=== PATIENT | female | born 1965 | race Caucasian/White ===

== ENCOUNTER 2017-03-28 11:17 | Inpatient (IN) ==
[2017-03-28] MEDS ORDERED: Albuterol 2.5 MG/3 ML NEBULIZER IH ONE (11:53)
[2017-03-28] MEDS ORDERED: Vancomycin 1,250 MG in D5% in Water 250 ML IVPB ONE (11:53)
[2017-03-28] MEDS ORDERED: Lidocaine -MPF 1% 2 ML VIAL ID ONE (11:53)
[2017-03-28] MEDS ORDERED: Albuterol 2.5 MG/3 ML NEBULIZER ONE (11:58)
[2017-03-28] MEDS ORDERED: Plasma-Lyte A (PH 7.4) 1,000 ML IVC SCH (12:00)
--- NOTE | 2017-03-28 12:10 | Anesthesia Evaluation PreOp ---
Date of Encounter: 03/28/17 Time of Encounter: 12:07 - Past History Planned Operation: Left total hip arthroplasty Cardiac History: HTN, Hyperlipidemia, Cardiac Stent (LAD), Other (stress : Impression: Perfusion imaging was negative for ischemia or infarct. Pharmacologic stress ECG is non diagnostic for ischemia due to baseline non-specific ST and T changes. No appreciable change from baseline ECG. 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: Other (depression) Other Medical History: Diabetes Type II Anesthesia History: No Prior Anesthetic Complications, Past Anesthesia ( appendectomy, csection, partial hysterectomy, cholecystectomy, atempted left subclavian aa angioplasty via left brachial aa cutdown) Alcohol Use: none Drug use: none Medications and Allergies Losartan Potassium [Cozaar] 50 mg PO DAILY 03/23/16 [History] Sertraline [Zoloft] 50 mg PO DAILY 03/23/16 [History] Simvastatin [Zocor] 40 mg PO HS 03/23/16 [History] Metformin HCl [Glucophage] 1,000 mg PO HS 04/09/16 [History] Aspirin [Lo-Dose Aspirin EC] 81 mg PO DAILY 03/28/17 [History] HYDROcodone/Acet 7.5/325 mg [[place] 7.5-325 mg] 1 tab PO QID PRN 03/28/17 [ History] Omeprazole [PriLOSEC] 20 mg PO DAILY 03/28/17 [History] 3 Allergy/AdvReac Type Severity Reaction Status Date / Time cefazolin [From Ancef] Allergy Unknown swelling Verified 03/28/17 12:20 shortness of breath meperidine [From Demerol] Allergy swelling Verified 03/28/17 12:20 shortness of breath Penicillins [PCN] Allergy SWELLING Verified 03/28/17 12:27 SHORTNESS OF BREATH promethazine [From Phenergan] Allergy swelling Verified 03/28/17 12:20 shortness of breath - Meds/Allergy Pre-op Review Medications Reviewed: Yes Allergies Reviewed: Yes Beta Blockers on Current Med List: No Anesthesia Results - Labs Laboratory Tests 11/16/16 02/25/17 02/25/17 10:38 12:10 12:10 WBC 13.5 H Hgb 14.2 Hct 42.4 Plt Count 482 H PT 10.9 INR 1.0 APTT 29.3 Sodium Potassium Chloride Carbon Dioxide BUN Creatinine Glucose 119 H Est Mean Plasma Glucose Hemoglobin A1c 02/25/17 02/25/17 02/25/17 12:10 12:10 12:10 WBC Hgb Hct Plt Count PT INR APTT Sodium 136 Potassium 4.1 Chloride 106 Carbon Dioxide 20 BUN 12 Creatinine 0.82 Glucose Est Mean Plasma Glucose 123 Hemoglobin A1c 5.9 H - Imaging EKG: report reviewed (NSR) Anesthesia Exam Vital Signs/O2 Sat, Most Current Temp Pulse Resp BP Pulse Ox 98.0 F 81 18 130/77 94 03/28/17 11:38 03/28/17 11:38 03/28/17 12:07 03/28/17 12:07 03/28/17 12:07 Blood glucose: 114 Height: 1.55m Weight: 80kg NPO (# of Hours): >8 Pain Scale: 0 Pain Scale Used: Numeric (1 - 10) - HEENT Pupil (Motor): Pupils equal, EOMI Mallampati: III Teeth: Poor dentition Oral Opening: Greater than 3 - GREEN CHAINER LOC: Oriented GREEN CHAINER Motor: Normal RUE, Normal LUE, Normal RLE, Normal LLE, Normal Face GREEN CHAINER Sensory: Normal: RUE, LUE, RLE, LLE, Face - Cardiac Rhythm: Regular - Pulmonary Breath Sounds: bilateral Clear Respiratory Effort: Symmetrical Anesthesia Assess/Plan ASA Score: 3 (CAD s/p stent to LAD, HTN, DM, depression) Modified [place] Scale for Level of Consciousness: Cooperative, oriented, and tranquil Anesthetic Plan: General (r/b/a discussed, questions answered, consent obtained) Monitoring Plan: Standard Monitors Recovery Plan: PACU
[2017-03-28] MEDS ORDERED: Naloxone 0.4 MG/ML INJ IVP PRN ×2 (12:32→16:00)
[2017-03-28] MEDS ORDERED: *HR* FentaNYL (PF) 100 MCG/2 ML VIAL IVP PRN (12:32)
[2017-03-28] MEDS ORDERED: Ondansetron 4 MG/2 ML VIAL IVP ONE (12:32)
--- NOTE | 2017-03-28 12:33 | History & Physical Report ---
Date of Encounter: 03/28/17 Time of Encounter: 12:33 24 Hour HP Update - Instructions Instructions: If the History and Physical is less than 30 days old and was completed prior to A.M. admission and or procedure and has NOT been updated on calendar day of procedure please complete this update prior to performing procedure. - Update Patient reports changes in Medical Condition: No Changes in examination, assessment, or condition: No Changes in Medication: No Preop tests/diagnostics Reviewed: Yes Surgery Remains Indicated: Yes Consent for Planned Operative Procedure(s) Verified: Yes - Pre-Operative Checklist Preoperative Checklist Indicated: No Prophylactic Antibiotic Ordered: Yes Is VTE Prophylaxis Indicated?: Yes
[2017-03-28] MEDS ORDERED: Ringers Solution, Lactated 1,000 ML IVC SCH (12:45)
[2017-03-28] MEDS ORDERED: Ethanol\\Acetic Acid\\Na Ace\\Ben 1,000 ML IRRIG.SOLN IR ONE (13:12)
[2017-03-28] MEDS ORDERED: *HR* Midazolam HCl 2 MG/2 ML VIAL ONE (13:16)
[2017-03-28] MEDS ORDERED: *HR* Propofol 200 MG/20 ML VIAL IVP ONE (13:16)
[2017-03-28] MEDS ORDERED: *HR* HYDROmorphone 2 MG/ML SYRINGE ONE (13:17)
[2017-03-28] MEDS ORDERED: Lidocaine -MPF 2% 2 ML VIAL ONE (13:18)
[2017-03-28] MEDS ORDERED: Lidocaine -MPF 4% 5 ML AMPUL ONE (13:19)
[2017-03-28] MEDS ORDERED: *HR* Succinylcholine 200 MG/10 ML VIAL IVP ONE (13:20)
[2017-03-28] MEDS ORDERED: Ketamine *HR* 500 MG/10 ML MDV ONE (13:38)
--- NOTE | 2017-03-28 13:40 | Discharge Summary ---
Date of Encounter: 03/29/17 Time of Encounter: 06:39 - Discharge Diagnosis (1) DDH (developmental dysplasia of the hip) Priority: Primary Status: Chronic (2) Status post total hip replacement, left Priority: Primary Status: Acute (3) Coronary artery disease Priority: Secondary Status: Chronic Qualifiers: Coronary Disease-Associated Artery/Lesion type: unspecified vessel or lesion type [place] vs. transplanted heart: unspecified whether tribe or transplanted heart Associated angina: with unspecified angina Qualified Code (s): I25.119 - Atherosclerotic heart disease of tribe coronary artery with unspecified angina pectoris (4) Hypertension Priority: Secondary Status: Chronic Qualifiers: Hypertension type: unspecified secondary hypertension Qualified Code(s): I15.9 - Secondary hypertension, unspecified; I15 - Secondary hypertension (5) Hyperlipidemia associated with type 2 diabetes mellitus Priority: Secondary Status: Chronic (6) Diabetes Priority: Secondary Status: Chronic Qualifiers: Diabetes mellitus type: type 2 Diabetes mellitus complication status: with unspecified complications Diabetes mellitus group home insulin use: unspecified group home insulin use status Qualified Code(s): E11.8 - Type 2 diabetes mellitus with unspecified complications (7) Obesity (BMI 30.0-34.9) Priority: Secondary Status: Chronic - Discharge Medications Home Medications: Losartan Potassium [Cozaar] 50 mg PO DAILY 03/23/16 [History] Sertraline [Zoloft] 50 mg PO DAILY 03/23/16 [History] Simvastatin [Zocor] 40 mg PO HS 03/23/16 [History] Metformin HCl [Glucophage] 1,000 mg PO HS 04/09/16 [History] Aspirin [Lo-Dose Aspirin EC] 81 mg PO DAILY 03/28/17 [History] HYDROcodone/Acet 7.5/325 mg [[place] 7.5-325 mg] 1 tab PO QID PRN 03/28/17 [ History] Omeprazole [PriLOSEC] 20 mg PO DAILY 03/28/17 [History] Allergies/Adverse Reactions: 3 Allergy/AdvReac Type Severity Reaction Status Date / Time cefazolin [From Ancef] Allergy Unknown swelling Verified 03/28/17 12:20 shortness of breath meperidine [From Demerol] Allergy swelling Verified 03/28/17 12:20 shortness of breath Penicillins [PCN] Allergy SWELLING Verified 03/28/17 12:27 SHORTNESS OF BREATH promethazine [From Phenergan] Allergy swelling Verified 03/28/17 12:20 shortness of breath Primary care physician: Aure Begum - Patient Status Disposition: Transfer Inpatient Rehab Fac Condition: Good Functional capacity at discharge: uses cane/walker Overall status at discharge: patient is progressing back to baseline - Discharge Instructions Follow Up With: Gene Devries MD [Partnered Physician] - 04/30/17 3:00 pm Jose Quintanilla MD [Partnered Physician] - Viviana Muro CNP [Primary Care Provider] - - Hospital Course Hospital course: Ms. Garcia is a 51 year old female Status post right hip replacement The patient had an uneventful postoperative course. They received antibiotics and physical therapy and were discharged in stable condition. There will follow -up in the office in 2 weeks. - Time Spent with Patient Total time spent providing and/or coordinating discharge services:
[2017-03-28] MEDS ORDERED: *HR* Phenylephrine 10 MG/ML VIAL ONE (13:50)
[2017-03-28] MEDS ORDERED: Dexamethasone 4 MG/ML VIAL ONE (14:05)
[2017-03-28] MEDS ORDERED: Ondansetron 4 MG/2 ML VIAL ONE (14:05)
[2017-03-28] MEDS ORDERED: Ketorolac 30 MG/ML VIAL ONE (14:28)
[2017-03-28] MEDS ORDERED: Acetaminophen IV 1,000 MG/100 ML INFUS..BTL ONE (14:36)
--- NOTE | 2017-03-28 14:39 | Orthopedic Operative Note ---
Date of procedure: 03/28/17 Pre-op diagnosis: Left Hip DDH Post-op diagnosis: same Procedure: Procedure: Left Total Hip Replacment Estimated blood loss: 200 cc Hardware: Metal and polyethylene replacement. Biomet DM Cup: 50 G7 fin cup Femoral size 12 echo full profile lateralized stem Head:-6 head with Jasmin Procedural Notes: DDH of left Hip Operative procedure: The patient was brought to the operating room and placed on the operating room table. After general anesthesia was administered the patient was placed in the lateral decubitus position with the operative leg up. All pressure points were padded appropriately and the head was stabilized in the neutral position. The operative extremity was prepped and draped in the sterile surgical fashion patient received IV antibiotic prior to skin incision. A standard posterior approach is made to the operative hip, the incision was made through the skin and subcutaneous tissue hemostasis was obtained with Bovie cautery. Using careful sharp dissection the fascia was identified and incised exposing the external rotators. The external rotators were released off the greater trochanter and tagged with #2 FiberWire suture. The capsule was T'd open and the hip was brought into internal rotation. Patient noted to have grade 4 arthritic changes femoral head. The femoral neck cut was made at the appropriate level. An anterior capsulotomy was performed for the anterior retractor. Soft tissues removed from the acetabulum. Patient noted to have grade 4 arthritic changes acetabulum. Acetabulum was first reamed medially, and then reamed in 15 degrees of anteversion and 45 degrees off the horizontal. It was reamed up to the appropriate size 50. The appropriate-sized 50 acetabular cup was impacted in place in 15 degrees of anteversion and 45 degrees off the horizontal. This had good fit and fixation. The hip was brought back in to internal rotation and prepared with the switch box installer followed by the canal finder followed by broaching process in 20 degrees anteversion. It was broached up to the appropriate size 12. The femoral implant was impacted in place in 20 degrees of anteversion. Trial reduction found the hip to be stable with -6 head and Jasmin. The trials were removed and the real implants were impacted in place. The hip was reduced, patient had apparent equal leg lengths. The hip had excellent stability with forward flexion to 90 degrees adduction of 30 degrees and internal rotation of 60 degrees. The hip had no shuck. The hips after 2 minutes with a Betadine saline solution. It was irrigated out with 2 L of pulse irrigation. Fascia was closed with a running #2 PDS suture. The deep tissue was irrigated and closed deep with #1 PDS suture superficially with 0 PDS suture and skin was closed with Dermabond and skin bronson. The patient was placed in a sterile dressing and abduction pillow. The patient was extubated and transferred to the recovery room in stable condition. Anesthesia: GETParvin Surgeon: Marcio Madrigal Condition: stable Disposition: PACU
[2017-03-28] MEDS: *HR* HYDROmorphone (PF) 1 MG/ML SYRINGE IVP PRN ×5 (14:55→21:35)
[2017-03-28 15:12] LABS: Hematocrit 36.4 % (35.3-44.9); Hemoglobin 11.9 g/dL (11.5-15.4)
--- NOTE | 2017-03-28 15:50 | Anesthesia Evaluation Post Op ---
Date of Encounter: 03/28/17 Time of Encounter: 15:50 - Vital Signs Vital Signs: Vital Signs - Last 8 Hours Temp Pulse Resp BP Pulse Ox 03/28/17 15:40 97.9 F 103 18 129/89 95 03/28/17 15:30 105 18 138/91 95 03/28/17 15:20 98.1 F 107 18 157/83 94 03/28/17 15:10 105 18 126/79 96 03/28/17 15:00 97.6 F 98 18 126/79 98 03/28/17 14:50 97.6 F 86 12 123/73 95 03/28/17 12:07 18 130/77 94 03/28/17 11:38 98.0 F 81 18 130/77 94 Intake and Output 03/27/17 03/28/17 03/28/17 23:59 07:59 15:59 Output Total 200 / 200 Balance -200 / -200 Output: Estimated Blood Loss 200 / 200 Other: Weight 80.286 kg Blood Glucose* 142 Patient Weight 03/28/17 23:59 Weight 80.286 kg - Lungs Lungs: Clear Ascult./Percussion - Airway Airway: Non-obstructed - Cardiovascular Regular Rate, Baseline Rhythm - Mental Status Mental Status: Alert & Oriented, Answers Appropriately - Pain Pain Scale: 0 Pain Scale used: Numeric (1 - 10) - Nausea Vomiting Nausea Vomiting: Not Present - Hydration Hydration: Tolerates oral liquids - Discharge PostOp Status: Transfer Patient to floor
[2017-03-28] MEDS ORDERED: MOM Conc 10 ML UD.LIQ PO PRN (16:00)
[2017-03-28] MEDS ORDERED: D5% in Water 1,000 ML IVC PRN (16:00)
[2017-03-28] MEDS ORDERED: *HR* OxyCODONE Immed Rel 5 MG TABLET PO PRN (16:00)
[2017-03-28] MEDS ORDERED: Temazepam 15 MG CAPSULE PO PRN (16:00)
[2017-03-28] MEDS ORDERED: Dextrose Gel 15 GM PO PRN ×2 (16:00)
[2017-03-28] MEDS ORDERED: Sennosides 8.6 MG TABLET PO PRN (16:00)
[2017-03-28] MEDS ORDERED: *HR* Dextrose 50 % in Water (Syg) 50 ML SYRINGE IVP PRN (16:00)
[2017-03-28] MEDS ORDERED: *HR* Enoxaparin 30 MG/0.3 ML SYRINGE SQ SCH (18:00)
[2017-03-28] MEDS: Ascorbic Acid 500 MG TABLET PO SCH (18:34)
[2017-03-28] MEDS: Clindamycin 900 MG/50 ML 900 MG/50 ML IV.SOLN IVPB SCH (18:36)
[2017-03-28] MEDS: *HR* Enoxaparin 30 MG/0.3 ML SYRINGE SQ SCH (18:36)
[2017-03-28] MEDS: Insulin LISPRO 300 UNITS/3 ML VIAL SQ SCH ×2 (18:36→21:34)
[2017-03-28] MEDS: *HR* OxyCODONE Immed Rel 5 MG TABLET PO PRN (19:35)
[2017-03-28] MEDS: *HR* Metformin 500 MG TABLET PO SCH (21:34)
[2017-03-29] MEDS: Clindamycin 900 MG/50 ML 900 MG/50 ML IV.SOLN IVPB SCH (01:07)
[2017-03-29] MEDS: *HR* OxyCODONE Immed Rel 5 MG TABLET PO PRN ×4 (01:12→20:19)
[2017-03-29] MEDS: *HR* HYDROmorphone (PF) 1 MG/ML SYRINGE IVP PRN ×2 (04:01→22:07)
[2017-03-29] MEDS: Ringers Solution, Lactated 1,000 ML IVC SCH (04:02)
[2017-03-29 05:25] LABS: Hemoglobin 11.8 g/dL (11.5-15.4)
[2017-03-29 05:45] LABS: BUN/Creatinine Ratio 15 (6-26); Blood Urea Nitrogen 12 mg/dL (7-20); Calcium 8.7 mg/dL (8.6-10.8); Carbon Dioxide 25 mEq/L (19-29); Chloride 97 mEq/L (98-109); Glucose 154 mg/dL (70-99); Osmolality,Calculated 275 (280-300); Potassium 4.9 mEq/L (3.5-4.5); Sodium 131 mEq/L (136-145); eGFR For African Americans > 60 (> 60); eGFR For Non-African Americans > 60 (> 60)
[2017-03-29] MEDS: *HR* Enoxaparin 30 MG/0.3 ML SYRINGE SQ SCH ×2 (06:12→20:01)
--- NOTE | 2017-03-29 06:40 | Orthopedics Progress Note ---
Date of Encounter: 03/29/17 Time of Encounter: 06:40 - Assessment and Plan (1) DDH (developmental dysplasia of the hip) Current Visit: Yes Status: Chronic (2) Status post total hip replacement, left Current Visit: Yes Status: Acute (3) Coronary artery disease Current Visit: No Status: Chronic Qualifiers: Coronary Disease-Associated Artery/Lesion type: unspecified vessel or lesion type [place] vs. transplanted heart: unspecified whether [place] or transplanted heart Associated angina: with unspecified angina Qualified Code (s): I25.119 - Atherosclerotic heart disease of [place] coronary artery with unspecified angina pectoris (4) Hypertension Current Visit: No Status: Chronic Qualifiers: Hypertension type: unspecified secondary hypertension Qualified Code(s): I15.9 - Secondary hypertension, unspecified; I15 - Secondary hypertension (5) Hyperlipidemia associated with type 2 diabetes mellitus Current Visit: No Status: Chronic (6) Diabetes Current Visit: No Status: Chronic Qualifiers: Diabetes mellitus type: type 2 Diabetes mellitus complication status: with unspecified complications Diabetes mellitus residential insurance inspector insulin use: unspecified long-term insulin use status Qualified Code(s): E11.8 - Type 2 diabetes mellitus with unspecified complications (7) Obesity (BMI 30.0-34.9) Current Visit: Yes Status: Chronic Subjective Interval history: Patient was seen this morning doing well without complaints. Afebrile vital signs stable. Operative extremity: Neurovascularly intact Dressing clean dry and intact Calves nontender Assessment and plan: Continue with postoperative care Hematocrit 36 discharged today Objective Vital signs: Vital Signs Temp Pulse Resp BP Pulse Ox 03/29/17 05:11 99.2 F 83 16 107/58 93 03/28/17 23:44 99.1 F 87 14 105/67 95 03/28/17 19:29 98.7 F 89 14 108/69 97 03/28/17 17:49 97.5 F L 94 14 112/70 94 03/28/17 17:24 98.7 F 101 15 129/82 96 03/28/17 16:52 98.5 F 83 16 105/58 97 03/28/17 16:04 98.8 F 101 16 121/76 93 03/28/17 15:50 97.9 F 105 18 119/82 94 03/28/17 15:40 97.9 F 103 18 129/89 95 03/28/17 15:30 105 18 138/91 95 03/28/17 15:20 98.1 F 107 18 157/83 94 03/28/17 15:10 105 18 126/79 96 03/28/17 15:00 97.6 F 98 18 126/79 98 03/28/17 14:50 97.6 F 86 12 123/73 95 03/28/17 12:07 18 130/77 94 03/28/17 11:38 98.0 F 81 18 130/77 94 Intake and Output 03/28/17 03/28/17 03/29/17 15:59 23:59 07:59 Intake Total 890 / 890 700 / 700 Output Total 200 / 200 400 / 400 600 / 600 Balance -200 / -200 490 / 490 100 / 100 Intake: IV Fluids 50 / 50 Cleocin Premix 900 MG/50 ML 900 50 / 50 mg In 50 ml @ 50 mls/hr IVPB Q8HR MEGHAN Rx#:[id number] Oral 840 / 840 700 / 700 Output: Urine 400 / 400 600 / 600 Estimated Blood Loss 200 / 200 Other: Meal Dinner Weight 80.286 kg Blood Glucose* 142 144 - Labs CBC & BMP: 03/29/17 04:41 03/29/17 04:41 Labs: Abnormal lab results Sodium 131 mEq/L (136-145) L 03/29/17 04:41 Potassium 4.9 mEq/L (3.5-4.5) H 03/29/17 04:41 Chloride 97 mEq/L (98-109) L 03/29/17 04:41 Glucose 154 mg/dL (70-99) H 03/29/17 04:41 POC Glucose 144 (58-89) H 03/28/17 21:07 Calculated Osmolality 275 (280-300) L 03/29/17 04:41 - VTE Documentation of Mechanical Device: Venous foot pump, device Consult Discharge Plan - Plan Referrals: Gene Devries MD [Partnered Physician] - 04/30/17 3:00 pm Jose Quintanilla MD [Partnered Physician] - Viviana Muro CNP [Primary Care Provider] -
[2017-03-29] MEDS: Insulin LISPRO 300 UNITS/3 ML VIAL SQ SCH ×4 (09:07→22:04)
[2017-03-29] MEDS: Ascorbic Acid 500 MG TABLET PO SCH ×2 (09:35→18:57)
[2017-03-29] MEDS: Multivit/Ca/Min/Fe/FA 1 TAB TABLET PO SCH (09:35)
[2017-03-29] MEDS: Aspirin Enteric Coated 81 MG Tablet PO SCH (09:35)
[2017-03-29] MEDS: *HR* Metformin 500 MG TABLET PO SCH (20:02)
[2017-03-29] MEDS: Ondansetron 4 MG/2 ML VIAL IVP PRN (21:54)
[2017-03-30] MEDS: *HR* OxyCODONE Immed Rel 5 MG TABLET PO PRN ×2 (04:29→12:05)
[2017-03-30] MEDS: Ondansetron 4 MG/2 ML VIAL IVP PRN (04:33)
[2017-03-30] MEDS: *HR* Enoxaparin 30 MG/0.3 ML SYRINGE SQ SCH ×2 (06:04→17:28)
[2017-03-30] MEDS: *HR* HYDROmorphone (PF) 1 MG/ML SYRINGE IVP PRN ×2 (06:04→21:06)
[2017-03-30 08:00] LABS: Hematocrit 35.2 % (35.3-44.9); Hemoglobin 11.5 g/dL (11.5-15.4)
[2017-03-30 08:09] LABS: BUN/Creatinine Ratio 15 (6-26); Blood Urea Nitrogen 12 mg/dL (7-20); Calcium 9.2 mg/dL (8.6-10.8); Carbon Dioxide 25 mEq/L (19-29); Chloride 95 mEq/L (98-109); Glucose 134 mg/dL (70-99); Osmolality,Calculated 272 (280-300); Sodium 130 mEq/L (136-145); eGFR For African Americans > 60 (> 60); eGFR For Non-African Americans > 60 (> 60)
[2017-03-30 08:12] LABS: Potassium 4.4 mEq/L (3.5-4.5)
[2017-03-30] MEDS: Insulin LISPRO 300 UNITS/3 ML VIAL SQ SCH ×4 (08:18→20:54)
[2017-03-30] MEDS: Ascorbic Acid 500 MG TABLET PO SCH ×2 (08:24→17:26)
[2017-03-30] MEDS: Aspirin Enteric Coated 81 MG Tablet PO SCH (08:24)
[2017-03-30] MEDS: Multivit/Ca/Min/Fe/FA 1 TAB TABLET PO SCH (08:25)
--- NOTE | 2017-03-30 18:02 | Physician Discharge Referral ---
<Darling Riley E - Last Filed: 03/30/17 18:00> ExtendedCare Referral Info Transfer To: [facility] Provider in Charge: Dr. Marcio Madrigal - Diagnosis (1) Status post total hip replacement, left Priority: Primary Status: Acute (2) DDH (developmental dysplasia of the hip) Priority: Primary Status: Chronic (3) Coronary artery disease Priority: Secondary Status: Chronic (4) Hypertension Priority: Secondary Status: Chronic (5) Hyperlipidemia associated with type 2 diabetes mellitus Priority: Secondary Status: Chronic (6) Obesity (BMI 30.0-34.9) Priority: Secondary Status: Chronic (7) Diabetes Priority: Secondary Status: Chronic Expected Duration of Placement: less than 30 days Prognosis: Good Aware of Diagnosis: Patient Aware of Prognosis: Patient - Transfer Medications Home Medications: Losartan Potassium [Cozaar] 50 mg PO DAILY 03/23/16 [History] Sertraline [Zoloft] 50 mg PO DAILY 03/23/16 [History] Simvastatin [Zocor] 40 mg PO HS 03/23/16 [History] Metformin HCl [Glucophage] 1,000 mg PO HS 04/09/16 [History] Aspirin [Lo-Dose Aspirin EC] 81 mg PO DAILY 03/28/17 [History] HYDROcodone/Acet 7.5/325 mg [[place] 7.5-325 mg] 1 tab PO QID PRN 03/28/17 [ History] Omeprazole [PriLOSEC] 20 mg PO DAILY 03/28/17 [History] Allergies/Adverse Reactions: 3 Allergy/AdvReac Type Severity Reaction Status Date / Time cefazolin [From Ancef] Allergy Unknown swelling Verified 03/28/17 12:20 shortness of breath meperidine [From Demerol] Allergy swelling Verified 03/28/17 12:20 shortness of breath Penicillins [PCN] Allergy SWELLING Verified 03/28/17 12:27 SHORTNESS OF BREATH promethazine [From Phenergan] Allergy swelling Verified 03/28/17 12:20 shortness of breath - Respiratory Orders Smoking Cessation: Smoking cessation has been advised. For more information, call the [place] Tobacco Quit Line at 7-016-QNHM-NOW. - Ancillary Orders May use pressure relief devices daily prn, May go on LISA w/family/respon alliance party w /meds at nurse discretion PRN, May consult with Dentist, Floor Clerk, Pe Electrical Engineer PRN - Mobility Orders Chair, Ambulate - Rehabiliation Orders Rehab Potential: Good Rehab Orders: Evaluation for Physical Therapy, Evaluation for Occupational Therapy Other: Total Hip replacement Precautions Apply cold therapy 3-6x/day for 20 minutes at a time. Encourage ambulation throughout the day and incentive spirometer 10x/hour. Elevate affected extremity as tolerated. Brace: Wear hip abduction pillow when laying/sleeping - Treatments Skin tear care topically daily PRN per policy List/Other: Opsite dressing, leave intact until first post-operative visit. If dressing becomes >50% saturated, contact office, remove dressing and place appropriate dressing in its place. Do not allow for dressing to get wet. Zipline in place, plan to remove at post-operative day #14-16. - Diet Orders Regular (Patient is diabetic) CERTIFICATION: I certify that the transfer of the above named patient to an Extended Care Facility is necessary for the continuing treatment of the diagnosis listed. The above information is true and accurate reflection of patient's current condition. Confidential - Redisclosure prohibited without a patient's written consent. <Marcio Madrigal - Last Filed: 04/01/17 06:35> - Diagnosis (1) DDH (developmental dysplasia of the hip) Status: Chronic (2) Status post total hip replacement, left Status: Acute (3) Coronary artery disease Status: Chronic (4) Hypertension Status: Chronic (5) Hyperlipidemia associated with type 2 diabetes mellitus Status: Chronic (6) Diabetes Status: Chronic (7) Obesity (BMI 30.0-34.9) Status: Chronic - Respiratory Orders Smoking Cessation: Smoking cessation has been advised. For more information, call the [place] Tobacco Quit Line at 8-594-HFXQ-NOW. CERTIFICATION: I certify that the transfer of the above named patient to an Extended Care Facility is necessary for the continuing treatment of the diagnosis listed. The above information is true and accurate reflection of patient's current condition. Confidential - Redisclosure prohibited without a patient's written consent.
[2017-03-30] MEDS: Ringers Solution, Lactated 1,000 ML IVC SCH (19:15)
[2017-03-30] MEDS: *HR* Metformin 500 MG TABLET PO SCH (21:06)
[2017-03-31] MEDS: *HR* Enoxaparin 30 MG/0.3 ML SYRINGE SQ SCH ×2 (05:58→17:00)
[2017-03-31] MEDS: Ascorbic Acid 500 MG TABLET PO SCH ×2 (09:00→16:59)
[2017-03-31] MEDS: Insulin LISPRO 300 UNITS/3 ML VIAL SQ SCH ×4 (09:00→21:20)
[2017-03-31] MEDS: Multivit/Ca/Min/Fe/FA 1 TAB TABLET PO SCH (09:01)
[2017-03-31] MEDS: Aspirin Enteric Coated 81 MG Tablet PO SCH (09:01)
[2017-03-31] MEDS: *HR* OxyCODONE Immed Rel 5 MG TABLET PO PRN ×3 (11:53→21:32)
[2017-03-31] MEDS: Nystatin POWDER 30 GM BOTTLE TP SCH (17:29)
--- NOTE | 2017-03-31 18:49 | Orthopedics Progress Note ---
Date of Encounter: 03/31/17 Time of Encounter: 01:40 Subjective Principal diagnosis: Status post left total hip arthroplasty Interval history: The patient is without complaints. Afebrile vital signs are stable. Incision is clean dry and intact. Neurovascularly intact with regard to bilateral lower extremities. Assessment :stable. Plan mobilize ,continue analgesics, discharge planning. Objective Vital signs: Vital Signs Temp Pulse Resp BP Pulse Ox 03/31/17 16:00 98.2 F 76 18 109/56 97 03/31/17 10:23 98.5 F 81 16 107/58 96 03/31/17 07:41 98.3 F 76 18 104/67 95 03/31/17 00:07 98.1 F 80 17 100/66 94 03/30/17 21:30 93 03/30/17 19:55 98.3 F 85 19 104/68 93 Intake and Output 03/31/17 03/31/17 03/31/17 07:59 15:59 23:59 Intake Total 730 / 730 Output Total 1600 / 1600 500 / 500 Balance -870 / -870 -500 / -500 Intake: Oral 730 / 730 Output: Urine 1600 / 1600 500 / 500 Other: Meal Lunch Percent of Meal Consumed 70% # Voids 2 1 Weight 83.1 kg Blood Glucose* 172 168 122 Patient Weight 03/31/17 23:59 Weight 83.1 kg - Labs CBC & BMP: 03/30/17 07:22 03/30/17 07:22 Labs: Abnormal lab results Hct 35.2 % (35.3-44.9) L 03/30/17 07:22 Sodium 130 mEq/L (136-145) L 03/30/17 07:22 Chloride 95 mEq/L (98-109) L 03/30/17 07:22 Glucose 134 mg/dL (70-99) H 03/30/17 07:22 POC Glucose 158 (58-89) H 03/30/17 20:28 Calculated Osmolality 272 (280-300) L 03/30/17 07:22 - VTE Documentation of Mechanical Device: Venous foot pump, device Consult Discharge Plan - Plan Referrals: Darling Riley, PAC [Physician Contact Agent] - 04/05/17 9:00 am (& also, , April 11, 2017 at 09:15 AM) Marcio Madrigal MD [Partnered Physician] - 04/01/17 4:05 pm Gene Devries MD [Partnered Physician] - 04/30/17 3:00 pm Jose Quintanilla MD [Partnered Physician] - 04/02/17 2:30 pm Viviana Muro CNP [Primary Care Provider] -
[2017-03-31] MEDS: *HR* Metformin 500 MG TABLET PO SCH (21:23)
[2017-04-01] MEDS: *HR* Enoxaparin 30 MG/0.3 ML SYRINGE SQ SCH ×2 (06:26→16:42)
[2017-04-01] MEDS: *HR* OxyCODONE Immed Rel 5 MG TABLET PO PRN ×4 (06:30→21:39)
--- NOTE | 2017-04-01 06:44 | Orthopedics Progress Note ---
Date of Encounter: 04/01/17 Time of Encounter: 06:44 - Assessment and Plan (1) DDH (developmental dysplasia of the hip) Current Visit: Yes Status: Chronic (2) Status post total hip replacement, left Current Visit: Yes Status: Acute (3) Coronary artery disease Current Visit: No Status: Chronic Qualifiers: Coronary Disease-Associated Artery/Lesion type: unspecified vessel or lesion type [place] vs. transplanted heart: unspecified whether [place] or transplanted heart Associated angina: with unspecified angina Qualified Code (s): I25.119 - Atherosclerotic heart disease of [place] coronary artery with unspecified angina pectoris (4) Hypertension Current Visit: No Status: Chronic Qualifiers: Hypertension type: unspecified secondary hypertension Qualified Code(s): I15.9 - Secondary hypertension, unspecified; I15 - Secondary hypertension (5) Hyperlipidemia associated with type 2 diabetes mellitus Current Visit: No Status: Chronic (6) Diabetes Current Visit: No Status: Chronic Qualifiers: Diabetes mellitus type: type 2 Diabetes mellitus complication status: with unspecified complications Diabetes mellitus termination clerk insulin use: unspecified termination clerk insulin use status Qualified Code(s): E11.8 - Type 2 diabetes mellitus with unspecified complications (7) Obesity (BMI 30.0-34.9) Current Visit: Yes Status: Chronic Subjective Principal diagnosis: Status post left total hip arthroplasty Interval history: Patient was seen this morning doing well without complaints. Afebrile vital signs stable. Operative extremity: Neurovascularly intact Dressing clean dry and intact Calves nontender Assessment and plan: Continue with postoperative care Discharge held secondary to placement will discharge today Objective Vital signs: Vital Signs Temp Pulse Resp BP Pulse Ox 04/01/17 04:01 98.9 F 72 16 104/59 92 04/01/17 00:22 98.9 F 81 16 106/68 93 03/31/17 19:31 98.8 F 70 16 106/67 93 03/31/17 16:00 98.2 F 76 18 109/56 97 03/31/17 10:23 98.5 F 81 16 107/58 96 03/31/17 07:41 98.3 F 76 18 104/67 95 Intake and Output 03/31/17 03/31/17 04/01/17 15:59 23:59 07:59 Intake Total 730 / 730 500 / 500 Output Total 1600 / 1600 800 / 800 750 / 750 Balance -870 / -870 -800 / -800 -250 / -250 Intake: Oral 730 / 730 500 / 500 Output: Urine 1600 / 1600 800 / 800 750 / 750 Stool 0 / 0 Other: Meal Lunch Percent of Meal Consumed 70% # Voids 2 1 # Bowel Movements 0 Weight 87.2 kg Blood Glucose* 168 171 Patient Weight 04/01/17 23:59 Weight 87.2 kg - Labs CBC & BMP: 03/30/17 07:22 03/30/17 07:22 Labs: Abnormal lab results Hct 35.2 % (35.3-44.9) L 03/30/17 07:22 Sodium 130 mEq/L (136-145) L 03/30/17 07:22 Chloride 95 mEq/L (98-109) L 03/30/17 07:22 Glucose 134 mg/dL (70-99) H 03/30/17 07:22 POC Glucose 171 (58-89) H 03/31/17 20:58 Calculated Osmolality 272 (280-300) L 03/30/17 07:22 - VTE Documentation of Mechanical Device: Venous foot pump, device Consult Discharge Plan - Plan Referrals: Darling Riley, PAC [Physician Elevator Constructor Supervisor] - 04/05/17 9:00 am (& also, March at 09:15 AM) Marcio Madrigal MD [Partnered Physician] - 04/01/17 4:05 pm Gene Devries MD [Partnered Physician] - 04/30/17 3:00 pm Jose Quintanilla MD [Partnered Physician] - 04/02/17 2:30 pm Viviana Muro, SLICK [Primary Care Provider] -
[2017-04-01] MEDS: Insulin LISPRO 300 UNITS/3 ML VIAL SQ SCH ×4 (08:20→21:41)
[2017-04-01] MEDS: Ascorbic Acid 500 MG TABLET PO SCH ×2 (08:26→16:42)
[2017-04-01] MEDS: Aspirin Enteric Coated 81 MG Tablet PO SCH (08:26)
[2017-04-01] MEDS: Multivit/Ca/Min/Fe/FA 1 TAB TABLET PO SCH (08:26)
[2017-04-01] MEDS: Nystatin POWDER 30 GM BOTTLE TP SCH ×2 (08:27→21:40)
[2017-04-01] MEDS ORDERED: FLUARIX QUAD 2017-18 36MOS UP/PF 0.5 ML SYRINGE IM ONE (08:29)
[2017-04-01] MEDS: Ondansetron 4 MG/2 ML VIAL IVP PRN (09:54)
[2017-04-01] MEDS: *HR* Metformin 500 MG TABLET PO SCH (21:39)
[2017-04-02] MEDS: *HR* Enoxaparin 30 MG/0.3 ML SYRINGE SQ SCH ×2 (05:12→17:10)
--- NOTE | 2017-04-02 06:48 | Orthopedics Progress Note ---
Date of Encounter: 04/02/17 Time of Encounter: 06:47 - Assessment and Plan (1) DDH (developmental dysplasia of the hip) Current Visit: Yes Status: Chronic (2) Status post total hip replacement, left Current Visit: Yes Status: Acute (3) Coronary artery disease Current Visit: No Status: Chronic Qualifiers: Coronary Disease-Associated Artery/Lesion type: unspecified vessel or lesion type [place] vs. transplanted heart: unspecified whether [place] or transplanted heart Associated angina: with unspecified angina Qualified Code (s): I25.119 - Atherosclerotic heart disease of [place] coronary artery with unspecified angina pectoris (4) Hypertension Current Visit: No Status: Chronic Qualifiers: Hypertension type: unspecified secondary hypertension Qualified Code(s): I15.9 - Secondary hypertension, unspecified; I15 - Secondary hypertension (5) Hyperlipidemia associated with type 2 diabetes mellitus Current Visit: No Status: Chronic (6) Diabetes Current Visit: No Status: Chronic Qualifiers: Diabetes mellitus type: type 2 Diabetes mellitus complication status: with unspecified complications Diabetes mellitus rodent exterminator insulin use: unspecified rodent exterminator insulin use status Qualified Code(s): E11.8 - Type 2 diabetes mellitus with unspecified complications (7) Obesity (BMI 30.0-34.9) Current Visit: Yes Status: Chronic Subjective Principal diagnosis: Status post left total hip arthroplasty Interval history: Patient was seen this morning doing well without complaints. Afebrile vital signs stable. Operative extremity: Neurovascularly intact Dressing clean dry and intact Calves nontender Assessment and plan: Continue with postoperative care Discharge held secondary to placement will discharge today Objective Vital signs: Vital Signs Temp Pulse Resp BP Pulse Ox 04/02/17 05:16 98.0 F 71 18 112/72 92 04/02/17 00:29 97.7 F 76 18 123/67 90 04/01/17 20:09 98.2 F 75 17 134/71 94 04/01/17 15:56 97.8 F 69 15 116/72 94 04/01/17 11:23 98.1 F 67 15 121/78 94 04/01/17 08:30 98.1 F 70 15 120/66 94 Intake and Output 04/01/17 04/01/17 04/02/17 15:59 23:59 07:59 Intake Total 240 / 240 880 / 880 Output Total 650 / 650 900 / 900 Balance -410 / -410 -20 / -20 Intake: Oral 240 / 240 880 / 880 Output: Urine 600 / 600 900 / 900 Emesis 50 / 50 Other: Meal Breakfast Dinner Percent of Meal Consumed 100% 65% # Voids 1 2 Blood Glucose* 94 131 - Labs CBC & BMP: 03/30/17 07:22 03/30/17 07:22 Labs: Abnormal lab results Hct 35.2 % (35.3-44.9) L 03/30/17 07:22 Sodium 130 mEq/L (136-145) L 03/30/17 07:22 Chloride 95 mEq/L (98-109) L 03/30/17 07:22 Glucose 134 mg/dL (70-99) H 03/30/17 07:22 POC Glucose 131 (58-89) H 04/01/17 21:34 Calculated Osmolality 272 (280-300) L 03/30/17 07:22 - VTE Documentation of Mechanical Device: Venous foot pump, device Consult Discharge Plan - Plan Additional Instructions: Discharge Instructions: Total Hip Replacement Please call [facility] ([phone]), your Primary Care Physician, or report to the Emergency Room if you have any of the following symptoms: Nausea, vomiting, fever greater that 101.5, swelling, chest pain, shortness of breath, increased pain/redness/drainage/odor for your incision site, numbness/ tingling, or any other concerning symptoms. ACTIVITY:Weight-bearing as tolerated for 8 weeks with hip dislocation precautions that physical therapy taught you. You may progress as tolerated under the guidance of your physical therapist. You do not need to sleep with a pillow between your legs. You can also seep on the operative side or on your stomach. MEDICATIONS: Upon discharge resume your home medications. Take all the medications as prescribed. Take a stool softener if taking narcotic pain medications. Stool softeners are only effective if you drink enough fluids. Drink 6-8 glass of water or fluids a day, unless this is not allowed for another health problem. Despite using stool softeners, if you haven't had a bowel movement in 3 days, please switch to a gentle laxative. Gentle laxatives are sold over the counter. You should have a bowel movement within 24 hours, if not call the office. You will be discharged from the hospital with a prescription for pain medication. You are encouraged to decrease the use of narcotic pain medication as tolerated. Should you require a refill, please call the office. [facility] prescribes narcotic pain medication for only 4-6 weeks after surgery. If you require pain medication beyond this time period, you may be referred to your Primary Care Physician or to the Pain Clinic for further evaluation. Plan ahead for refills on pain medication as many narcotics either need to be picked up at the office or mailed. It is best to call 48-72 hours in advance of needing a prescription refill so you don't run out of medication. To help control the post-operative pain, you may take NSAIDs (Aleve,Advil, Motrin, ibuprofen, naprosyn) or Tylenol as prescribed on the bottle in addition to the pain medication. ANTICOAGULATION (blood thinners): Continue your Aspirin, Lovenox or Coumadin as prescribed to help prevent a blood clot in the leg or in the lungs. As long as your incision remains dry and you tolerate the NSAIDs (Aleve, Advil, Motrin, Ibuprofen, Naprosyn), it is OK to use the NSAIDS while you are taking your anticoagulation medication. Should your incision start to drain, stop the NSAID and contact our office. Common symptoms of blood clot in the legs include: localized pain, swelling, calf tenderness, redness or discoloration of the skin. Blood clot in the lung symptoms include: shortness of breath, rapid pulse, sweating, and chest pain that worsens with deep breathing, coughing up blood, lightheadedness, feelings of anxiety. If you experience any of these symptoms notify your physician immediately, go to the emergency room, or if having trouble breathing, call 911. WOUND CARE: Leave the dressing on for 7 to 10days. You may change the dressing if it is saturated greater than 50%. Do not get the dressing wet at anytime. Wash your hands with antibacterial soap, rinse and dry prior to any wound care. If you have bronson the visiting nurse or rehab facility can remove the stapes 10-14 days after surgery [address] place steri-strips across the wound. Leave the steri-strips in place until they fall off on their own. You may let water from the shower run on top of the steri-strips. If you do not have a visiting nurse or rehab facility, you will need to return to the office at 10-14 days for the bronson to be removed. If you have itching or redness around the dressing call the office. FOLLOW-UP: Please follow up with your surgeon in the orthopedic clinic in 6 weeks from the day of surgery. If you have bronson that need to be removed, you will need to come back to the office in 10-14 days from the day of surgery. Referrals: Darling Riley, PAC [Physician Power Shovel Operator Helper] - 04/05/17 9:00 am (& also, , April 11, 2017 at 09:15 AM) Marcio Madrigal MD [Partnered Physician] - 04/01/17 4:05 pm Gene Devries MD [Partnered Physician] - 04/30/17 3:00 pm Jose Quintanilla MD [Partnered Physician] - 04/02/17 2:30 pm Viviana Muro, SLICK [Primary Care Provider] - Prescriptions: Aspirin Enteric Coated [Aspirin EC] 325 mg PO DAILY #21 tablet. HYDROcodone/Acet 7.5/325 mg [[place] 7.5-325 mg] 1 tab PO Q6HR #28 tablet
[2017-04-02] MEDS: Aspirin Enteric Coated 81 MG Tablet PO SCH (08:02)
[2017-04-02] MEDS: Insulin LISPRO 300 UNITS/3 ML VIAL SQ SCH ×4 (08:03→21:15)
[2017-04-02] MEDS: Ascorbic Acid 500 MG TABLET PO SCH ×2 (08:03→17:10)
[2017-04-02] MEDS: Multivit/Ca/Min/Fe/FA 1 TAB TABLET PO SCH (08:03)
[2017-04-02] MEDS: Nystatin POWDER 30 GM BOTTLE TP SCH ×2 (08:04→21:14)
[2017-04-02] MEDS: *HR* OxyCODONE Immed Rel 5 MG TABLET PO PRN ×2 (08:13→17:09)
[2017-04-02] MEDS ORDERED: FLUARIX QUAD 2017-18 36MOS UP/PF 0.5 ML SYRINGE IM ONE (10:00)
[2017-04-02] MEDS: *HR* Metformin 500 MG TABLET PO SCH (21:13)
[2017-04-03] MEDS: *HR* Enoxaparin 30 MG/0.3 ML SYRINGE SQ SCH (06:14)
--- NOTE | 2017-04-03 07:59 | Orthopedics Progress Note ---
Date of Encounter: 04/03/17 Time of Encounter: 07:59 - Assessment and Plan (1) DDH (developmental dysplasia of the hip) Current Visit: Yes Status: Chronic (2) Status post total hip replacement, left Current Visit: Yes Status: Acute (3) Coronary artery disease Current Visit: No Status: Chronic Qualifiers: Coronary Disease-Associated Artery/Lesion type: unspecified vessel or lesion type [place] vs. transplanted heart: unspecified whether [place] or transplanted heart Associated angina: with unspecified angina Qualified Code (s): I25.119 - Atherosclerotic heart disease of [place] coronary artery with unspecified angina pectoris (4) Hypertension Current Visit: No Status: Chronic Qualifiers: Hypertension type: unspecified secondary hypertension Qualified Code(s): I15.9 - Secondary hypertension, unspecified; I15 - Secondary hypertension (5) Hyperlipidemia associated with type 2 diabetes mellitus Current Visit: No Status: Chronic (6) Diabetes Current Visit: No Status: Chronic Qualifiers: Diabetes mellitus type: type 2 Diabetes mellitus complication status: with unspecified complications Diabetes mellitus termite renewal inspector insulin use: unspecified termite renewal inspector insulin use status Qualified Code(s): E11.8 - Type 2 diabetes mellitus with unspecified complications (7) Obesity (BMI 30.0-34.9) Current Visit: Yes Status: Chronic Subjective Principal diagnosis: Status post left total hip arthroplasty Interval history: Patient was seen this morning doing well without complaints. Afebrile vital signs stable. Operative extremity: Neurovascularly intact Dressing clean dry and intact Calves nontender Assessment and plan: Continue with postoperative care Discharge held secondary to placement will discharge today Objective Vital signs: Vital Signs Temp Pulse Resp BP Pulse Ox 04/03/17 07:40 98 F 71 17 150/85 96 04/02/17 23:40 98.2 F 72 16 131/73 94 04/02/17 19:45 97.9 F 67 16 122/66 97 04/02/17 16:31 98.4 F 68 15 105/68 93 04/02/17 12:19 98.2 F 69 16 115/74 92 04/02/17 08:06 98.3 F 74 16 147/83 94 Intake and Output 04/02/17 04/02/17 04/03/17 15:59 23:59 07:59 Intake Total 358 / 358 100 / 100 200 / 200 Output Total 1100 / 1100 1600 / 1600 Balance 358 / 358 -1000 / -1000 -1400 / -1400 Intake: Oral 358 / 358 100 / 100 200 / 200 Output: Urine 1100 / 1100 1600 / 1600 Other: Meal Lunch Percent of Meal Consumed 80% # Voids 1 1 Blood Glucose* 119 141 - Labs CBC & BMP: 03/30/17 07:22 03/30/17 07:22 Labs: Abnormal lab results Hct 35.2 % (35.3-44.9) L 03/30/17 07:22 Sodium 130 mEq/L (136-145) L 03/30/17 07:22 Chloride 95 mEq/L (98-109) L 03/30/17 07:22 Glucose 134 mg/dL (70-99) H 03/30/17 07:22 POC Glucose 144 (58-89) H 04/02/17 20:31 Calculated Osmolality 272 (280-300) L 03/30/17 07:22 - VTE Documentation of Mechanical Device: Venous foot pump, device Consult Discharge Plan - Plan Additional Instructions: Discharge Instructions: Total Hip Replacement Please call [facility] ([phone]), your Primary Care Physician, or report to the Emergency Room if you have any of the following symptoms: Nausea, vomiting, fever greater that 101.5, swelling, chest pain, shortness of breath, increased pain/redness/drainage/odor for your incision site, numbness/ tingling, or any other concerning symptoms. ACTIVITY:Weight-bearing as tolerated for 8 weeks with hip dislocation precautions that physical therapy taught you. You may progress as tolerated under the guidance of your physical therapist. You do not need to sleep with a pillow between your legs. You can also seep on the operative side or on your stomach. MEDICATIONS: Upon discharge resume your home medications. Take all the medications as prescribed. Take a stool softener if taking narcotic pain medications. Stool softeners are only effective if you drink enough fluids. Drink 6-8 glass of water or fluids a day, unless this is not allowed for another health problem. Despite using stool softeners, if you haven't had a bowel movement in 3 days, please switch to a gentle laxative. Gentle laxatives are sold over the counter. You should have a bowel movement within 24 hours, if not call the office. You will be discharged from the hospital with a prescription for pain medication. You are encouraged to decrease the use of narcotic pain medication as tolerated. Should you require a refill, please call the office. [facility] prescribes narcotic pain medication for only 4-6 weeks after surgery. If you require pain medication beyond this time period, you may be referred to your Primary Care Physician or to the Pain Clinic for further evaluation. Plan ahead for refills on pain medication as many narcotics either need to be picked up at the office or mailed. It is best to call 48-72 hours in advance of needing a prescription refill so you don't run out of medication. To help control the post-operative pain, you may take NSAIDs (Aleve,Advil, Motrin, ibuprofen, naprosyn) or Tylenol as prescribed on the bottle in addition to the pain medication. ANTICOAGULATION (blood thinners): Continue your Aspirin, Lovenox or Coumadin as prescribed to help prevent a blood clot in the leg or in the lungs. As long as your incision remains dry and you tolerate the NSAIDs (Aleve, Advil, Motrin, Ibuprofen, Naprosyn), it is OK to use the NSAIDS while you are taking your anticoagulation medication. Should your incision start to drain, stop the NSAID and contact our office. Common symptoms of blood clot in the legs include: localized pain, swelling, calf tenderness, redness or discoloration of the skin. Blood clot in the lung symptoms include: shortness of breath, rapid pulse, sweating, and chest pain that worsens with deep breathing, coughing up blood, lightheadedness, feelings of anxiety. If you experience any of these symptoms notify your physician immediately, go to the emergency room, or if having trouble breathing, call 911. WOUND CARE: Leave the dressing on for 7 to 10days. You may change the dressing if it is saturated greater than 50%. Do not get the dressing wet at anytime. Wash your hands with antibacterial soap, rinse and dry prior to any wound care. If you have bronson the visiting nurse or rehab facility can remove the stapes 10-14 days [address] surgery [address] steri-strips across the wound. Leave the steri-strips in place until they fall off on their own. You may let water from the shower run on top of the steri-strips. If you do not have a visiting nurse or rehab facility, you will need to return to the office at 10-14 days for the bronson to be removed. If you have itching or redness around the dressing call the office. FOLLOW-UP: Please follow up with your surgeon in the orthopedic clinic in 6 weeks from the day of surgery. If you have bronson that need to be removed, you will need to come back to the office in 10-14 days from the day of surgery. Referrals: Darling Riley, NORAH [Physician Ux Developer] - 04/05/17 9:00 am (& also, , April 11, 2017 at 09:15 AM) Marcio Madrigal MD [Partnered Physician] - 04/01/17 4:05 pm Gene Devries MD [Partnered Physician] - 04/30/17 3:00 pm Jose Quintanilla MD [Partnered Physician] - 04/02/17 2:30 pm Viviana Muro, SUPERVISOR MACHINING [Primary Care Provider] - Prescriptions: Aspirin Enteric Coated [Aspirin EC] 325 mg PO DAILY #21 tablet. HYDROcodone/Acet 7.5/325 mg [[place] 7.5-325 mg] 1 tab PO Q6HR #28 tablet
[2017-04-03] MEDS: Insulin LISPRO 300 UNITS/3 ML VIAL SQ SCH ×2 (08:50→11:25)
[2017-04-03] MEDS: Ascorbic Acid 500 MG TABLET PO SCH (09:00)
[2017-04-03] MEDS: Aspirin Enteric Coated 81 MG Tablet PO SCH (09:00)
[2017-04-03] MEDS: Nystatin POWDER 30 GM BOTTLE TP SCH (09:00)
[2017-04-03] MEDS: Multivit/Ca/Min/Fe/FA 1 TAB TABLET PO SCH (09:00)
[2017-04-03] MEDS ORDERED: FLUARIX QUAD 2017-18 36MOS UP/PF 0.5 ML SYRINGE IM ONE (10:00)
[2017-04-03] MEDS: *HR* OxyCODONE Immed Rel 5 MG TABLET PO PRN (11:17)
[2017-04-03 12:11] VITALS: BP 142/84
== END 2017-04-03 14:50 | DRG 301 ==
LOC: SAMDAY 11:17 → 3NENU 16:01
PROVIDERS: ADMIT Orthopaedic Surgery; ATTEND Orthopaedic Surgery